=== PATIENT | male | born 1965 | race Caucasian/White ===

== ENCOUNTER 2018-04-20 03:12 | Emergency (ER) | payer OTHER ==
[~2018-04-20] VITALS: Ht 177.8 cm; Wt 113.4 kg
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
--- NOTE | 2018-04-20 03:28 | NUR ---
Patient transpotred to CT via gurney by radiology team
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
[2018-04-20] MEDS ORDERED: IBUPROFEN 400 MG TABLET PO ONE (04:30)
[2018-04-20] MEDS ORDERED: IBUPROFEN 400 MG TABLET ONE (04:31)
[2018-04-20] MEDS ORDERED: TDAP [DIPH/PERTUSSIS/TET] 0.5 ML VIAL IM ONE ×2 (05:41→06:00)
--- NOTE | 2018-04-20 06:00 | NUR ---
DPatient discharged to home in stable condition. Written and verbal after care instructions given. Patient verbalizes understanding of instruction. AMBULATORY WITH STEADY GAIT. DISCHARGED WITH SISTER.
[2018-04-20 06:31] VITALS: BP 113/64
== END 2018-04-20 06:00 | disposition home or self-care (01) ==
LOC: ER 03:14
DX: S01.311A Laceration without foreign body of right ear, initial encounter (principal); S16.1XXA Strain of muscle, fascia and tendon at neck level, initial encounter; I10 Essential (primary) hypertension; E11.9 Type 2 diabetes mellitus without complications; R51 Headache; F10.129 Alcohol abuse with intoxication, unspecified; Y90.9 Presence of alcohol in blood, level not specified; Z88.8 Allergy status to other drugs, medicaments and biological substances; V49.49XA Driver injured in collision with other motor vehicles in traffic accident, initial encounter; Y93.89 Activity, other specified; Y92.830 Public park as the place of occurrence of the external cause; Y99.8 Other external cause status
CPT/HCPCS: 70450-TC; 71045-TC; 72125-TC; 90715; A4606; A6402; Z7610